=== PATIENT | female | born 1930 | race American Indian/Alaskan Native ===

== ENCOUNTER 2020-04-13 18:42 | Emergency (ER) | payer MEDICARE, OTHER ==
[2020-04-13 19:12] LABS: Basophils % (Auto) 0.8 % (0.0-1.8); Eosinophils # (Auto) 0.1 K/mm3 (0.0-0.4); Hematocrit 36.8 % (30.3-42.9); Hemoglobin 13.1 gm/dl (10.1-14.3); Lymphocytes # (Auto) 1.6 K/mm3 (1.2-5.4); Lymphocytes % (Auto) 29.4 % (13.4-35.0); Mean Corpuscular HGB Conc 36 % (30-34); Mean Corpuscular Volume 101 fl (79-97); Monocytes # (Auto) 0.4 K/mm3 (0.0-0.8); Monocytes % (Auto) 8.2 % (0.0-7.3); Platelet Count 250 K/mm3 (140-440); Red Blood Count 3.65 M/mm3 (3.65-5.03); Red Cell Distribution Width 12.8 % (13.2-15.2)
[2020-04-13 19:33] LABS: BUN/Creatinine Ratio 27; Blood Urea Nitrogen 24 mg/dL (7-17); Calcium 10.1 mg/dL (8.4-10.2); Hemolysis Index 12
[2020-04-13 19:39] LABS: INR 0.96 (0.87-1.13)
[2020-04-13 19:40] LABS: Partial Thromboplastin Time 27.7 Sec. (24.2-36.6)
--- NOTE | 2020-04-13 20:38 | Emergency Department Report ---
ED General Adult HPI - General Chief complaint: Weakness Stated complaint: WEAKNESS/LIGHTHEADED PUI?: No Time Seen by Provider: 04/13/20 19:47 Source: patient, family, RN notes reviewed, old records reviewed Mode of arrival: Wheelchair Limitations: No Limitations - History of Present Illness Initial comments: The patient was evaluated in the emergency department for symptoms described in the history of present illness. He/she was evaluated in the context of the global COVID-19 pandemic, which necessitated consideration that the patient might be at risk for infection with the virus that causes COVID-19. Institutional protocols and algorithms that pertain to the evaluation of patients at risk for COVID-19 are in a state of rapid change based on information released by regulatory bodies including the CDC and federal and state organizations. These policies and algorithms were followed during the patient's care in the emergency department. Please note that these policies, procedures and recommendations changed on a rapid basis. The patient is an 89-year-old female. Her primary care doctor is Dr. Santos. Her past medical history includes dementia, diabetes, hypertension, typically ambulates with a walker. She is accompanied by her daughter, who provides most of the history. The patient has been in her usual state of health, when she apparently woke up this morning, and reported that she felt dizzy and weak. The patient cannot describe what she means by dizzy and weak. As per her daughter, there is no complaint of fever, vomiting, diarrhea, urinary frequency, loss of taste or smell, medication change or sick contact. The patient ambulates with a walker. As per her daughter, the patient is typically able to complete most of her activities of daily living with minimal to no assistance. The patient herself denies physical pain. She cannot describe the qualitative nature of her symptoms. She cannot describe exacerbating or relieving factors, although she thinks it gets worse when she walks. She denies headache, neck pain, chest pain, abdominal pain, shortness of breath, loss of vision. There is no recent travel, surgery, or DVT, pulmonary embolism risk factors as per the patient's daughter. -: This morning (Patient woke up with symptoms) Quality: other Consistency: other Improves with: other Worsens with: other Associated Symptoms: other - Related Data Previous Rx's Medication Instructions Recorded Last Taken Type Ondansetron [Zofran TAB] 4 mg PO Q6HR PRN #20 tablet 12/30/13 Unknown Rx Ranitidine HCl [Zantac] 300 mg PO QDAY #20 tablet 12/30/13 Unknown Rx Aspirin [Aspirin BABY CHEW TAB] 81 mg PO QDAY #30 tab.chew 04/13/20 Unknown Rx Nitrofurantoin Emanuel/M-Cryst 100 mg PO Q12HR #13 capsule 04/13/20 Unknown Rx [Macrobid CAP] Potassium Chloride 20 meq PO QDAY #10 packet 04/13/20 Unknown Rx Allergies Allergy/AdvReac Type Severity Reaction Status Date / Time No Known Allergies Allergy Unverified 12/30/13 14:38 ED Review of Systems ROS: Stated complaint: WEAKNESS/LIGHTHEADED Other details as noted in HPI Constitutional: malaise, weakness. denies: fever Eyes: denies: eye discharge, vision change Respiratory: denies: cough Cardiovascular: denies: chest pain Gastrointestinal: denies: abdominal pain Genitourinary: denies: dysuria Musculoskeletal: myalgia (Chronic myalgias) Neurological: weakness, confusion (Chronic confusion). denies: headache ED Past Medical Hx - Past Medical History Previous Medical History?: Yes Hx Hypertension: Yes Hx Diabetes: Yes Hx Dementia: Yes Additional medical history: Dementia - Social History Smoking Status: Former Smoker - Medications Home Medications: Home Medications Medication Instructions Recorded Confirmed Last Taken Type Ondansetron [Zofran TAB] 4 mg PO Q6HR PRN #20 tablet 12/30/13 01/03/14 Unknown Rx Ranitidine HCl [Zantac] 300 mg PO QDAY #20 tablet 12/30/13 01/03/14 Unknown Rx Aspirin [Aspirin BABY CHEW TAB] 81 mg PO QDAY #30 tab.chew 04/13/20 Unknown Rx Nitrofurantoin Emanuel/M-Cryst 100 mg PO Q12HR #13 capsule 04/13/20 Unknown Rx [Macrobid CAP] Potassium Chloride 20 meq PO QDAY #10 packet 04/13/20 Unknown Rx ED Physical Exam - General Limitations: Physical Limitation General appearance: alert (Patient is alert to name and location. She follows commands.), in no apparent distress - Head Head exam: Present: atraumatic, normocephalic - Eye Eye exam: Present: normal appearance, EOMI. Absent: nystagmus - ENT ENT exam: Present: normal exam, normal orophraynx, mucous membranes moist, normal external ear exam - Neck Neck exam: Present: normal inspection, full ROM. Absent: tenderness, meningismus - Respiratory Respiratory exam: Present: normal lung sounds bilaterally. Absent: respiratory distress, wheezes, rales, rhonchi, stridor, decreased breath sounds - Cardiovascular Cardiovascular Exam: Present: regular rate, normal rhythm, normal heart sounds. Absent: bradycardia, tachycardia, irregular rhythm, systolic murmur, diastolic murmur, rubs, gallop - GI/Abdominal GI/Abdominal exam: Present: soft. Absent: distended, tenderness, guarding, rebound, rigid, pulsatile mass - Extremities Exam Extremities exam: Present: normal inspection, full ROM, pedal edema (1+ edema in the bilateral lower extremities), other (2+ pulses noted in the bilateral upper and lower extremities. There is no palpable cord. negative Homans sign. Muscular compartments are soft. The pelvis is stable.). Absent: calf tenderness - Back Exam Back exam: Present: normal inspection. Absent: tenderness, CVA tenderness (R), CVA tenderness (L), paraspinal tenderness, vertebral tenderness - Neurological Exam Neurological exam: Present: alert, abnormal gait (Patient walks with an unsteady gait even with a 1 person assist.), other (No facial droop. Tongue midline. Extraocular movements intact bilaterally. Facial sensation intact to light touch in V1, V2, V3 distribution bilaterally. 5 and a 5 strength in 4 extremities. Sensation intact to light touch in 4 extremities.) - Psychiatric Psychiatric exam: Present: flat affect - Skin Skin exam: Present: warm, dry, intact, normal color. Absent: rash ED Course Vital Signs 04/13/20 04/13/20 04/13/20 18:52 19:51 20:00 Temperature 98.9 F Pulse Rate 76 86 Respiratory 16 17 Rate Blood Pressure 159/85 Blood Pressure 176/84 [Right] O2 Sat by Pulse 98 99 99 Oximetry 04/13/20 04/13/20 04/13/20 20:15 20:50 21:00 Temperature Pulse Rate 84 83 Respiratory 18 20 Rate Blood Pressure 159/85 159/85 168/81 Blood Pressure [Right] O2 Sat by Pulse 99 100 Oximetry 04/13/20 04/13/20 21:16 21:30 Temperature Pulse Rate 82 87 Respiratory 16 14 Rate Blood Pressure 159/85 159/85 Blood Pressure [Right] O2 Sat by Pulse 89 96 Oximetry - Reevaluation(s) Reevaluation #1: 04/13/20 21:02 Differential diagnosis, including but not limited to: Stroke, deconditioning, p neumonia, urinary tract infection, electrolyte derangement, thyroid derangement, peripheral vertigo Assessment and plan: 89-year-old female, who is not currently tachycardic, tachypneic or hypoxic, who denies DVT, pulmonary embolism risk factors, who is low risk by Wells criteria, who woke up with a complaint of feeling weak, dizzy, with a chronically unsteady gait. Her last known well time is not explicitly known, therefore, she is not a TPA candidate. Her examination at this time is not consistent or suggestive of a large vessel occlusion. I highly suspect that the patient is deconditioned, and is likely experiencing the natural history of her multiple chronic medical issues. However, we cannot exclude subacute stroke/arrhythmia. Her EKG is abnormal but not consistent with a STEMI. Laboratory studies are reviewed and appreciated, x-ray of the chest, urinalysis, CT scan of the brain are pending. Extensive discussion had with daughter regarding goals of care. We did discuss admission to rule out stroke, risks of hospitalization, including slip and fall, delirium, sundowning, COVID-19, DVT, hospital-acquired infection are discussed with the daughter, she is currently trying to decide what she would like to do. Reevaluation #2: 04/13/20 22:30 Patient is reevaluated and her exam is unchanged. I have gone back to discuss the patient's findings with her daughter/medical decision maker. The daughter informs me that she and her siblings would prefer comfort care measures for the patient, and they do not want to have the patient hospitalized. I have explicitly explained the risks of an undiagnosed TIA/subacute stroke with the patient's daughter, including disability, , paralysis, permanent loss of quality of life. She verbalizes understanding. She understands that she may return to the emergency room right away if and when the patient has a change in her clinical status. Therefore, through shared decision making, and as per the goals of care described by the patient's family, we will discharge the patient with Macrobid, aspirin, potassium supplementation, instructions to follow-up with your primary care doctor shortly, and return with any change or worsening her condition. The patient appears quite comfortable with this plan, as is her daughter. 04/13/20 22:[address] a case management consult to determine if the patient is eligible for home physical therapy/rehabilitation ED Medical Decision Making - Lab Data Result diagrams: 04/13/20 18:55 04/13/20 18:55 Vital Signs 04/13/20 18:52 Temperature 98.9 F Pulse Rate 76 Respiratory 16 Rate Blood Pressure 176/84 [Right] O2 Sat by Pulse 98 Oximetry Lab Results 04/13/20 04/13/20 04/13/20 Range/Units 18:55 18:55 18:55 WBC 5.5 (4.5-11.0) K/mm3 RBC 3.65 (3.65-5.03) M/mm3 Hgb 13.1 (10.1-14.3) gm/dl Hct 36.8 (30.3-42.9) % MCV 101 H (79-97) fl MCH 36 H (28-32) pg MCHC 36 H (30-34) % RDW 12.8 L (13.2-15.2) % Plt Count 250 (140-440) K/mm3 Lymph % (Auto) 29.4 (13.4-35.0) % Emanuel % (Auto) 8.2 H (0.0-7.3) % Eos % (Auto) 2.0 (0.0-4.3) % Baso % (Auto) 0.8 (0.0-1.8) % Lymph # (Auto) 1.6 (1.2-5.4) K/mm3 Emanuel # (Auto) 0.4 (0.0-0.8) K/mm3 Eos # (Auto) 0.1 (0.0-0.4) K/mm3 Baso # (Auto) 0.0 (0.0-0.1) K/mm3 Seg Neutrophils % 59.6 (40.0-70.0) % Seg Neutrophils # 3.3 (1.8-7.7) K/mm3 PT 13.0 (12.2-14.9) Sec. INR 0.96 (0.87-1.13) APTT 27.7 (24.2-36.6) Sec. Thrombin Time (15.1-19.6) Sec. Sodium 138 (137-145) mmol/L Potassium 3.4 L (3.6-5.0) mmol/L Chloride 97.5 L (98-107) mmol/L Carbon Dioxide 29 (22-30) mmol/L Anion Gap 15 mmol/L BUN 24 H (7-17) mg/dL Creatinine 0.9 (0.6-1.2) mg/dL Estimated GFR > 60 ml/min BUN/Creatinine Ratio 27 % Glucose 150 H (65-100) mg/dL Lactic Acid (0.7-2.0) mmol/L Calcium 10.1 (8.4-10.2) mg/dL Magnesium (1.7-2.3) mg/dL Ammonia (25-60) umol/L Total Creatine Kinase (30-135) units/L Troponin T < 0.010 (0.00-0.029) ng/mL TSH (0.270-4.200) mlU/mL 04/13/20 04/13/20 04/13/20 Range/Units 18:55 19:27 19:27 WBC (4.5-11.0) K/mm3 RBC (3.65-5.03) M/mm3 Hgb (10.1-14.3) gm/dl Hct (30.3-42.9) % MCV (79-97) fl MCH (28-32) pg MCHC (30-34) % RDW (13.2-15.2) % Plt Count (140-440) K/mm3 Lymph % (Auto) (13.4-35.0) % Emanuel % (Auto) (0.0-7.3) % Eos % (Auto) (0.0-4.3) % Baso % (Auto) (0.0-1.8) % Lymph # (Auto) (1.2-5.4) K/mm3 Emanuel # (Auto) (0.0-0.8) K/mm3 Eos # (Auto) (0.0-0.4) K/mm3 Baso # (Auto) (0.0-0.1) K/mm3 Seg Neutrophils % (40.0-70.0) % Seg Neutrophils # (1.8-7.7) K/mm3 PT (12.2-14.9) Sec. INR (0.87-1.13) APTT (24.2-36.6) Sec. Thrombin Time 17.7 (15.1-19.6) Sec. Sodium (137-145) mmol/L Potassium (3.6-5.0) mmol/L Chloride (98-107) mmol/L Carbon Dioxide (22-30) mmol/L Anion Gap mmol/L BUN (7-17) mg/dL Creatinine (0.6-1.2) mg/dL Estimated GFR ml/min BUN/Creatinine Ratio % Glucose (65-100) mg/dL Lactic Acid 1.20 (0.7-2.0) mmol/L Calcium (8.4-10.2) mg/dL Magnesium 2.10 (1.7-2.3) mg/dL Ammonia (25-60) umol/L Total Creatine Kinase 30 (30-135) units/L Troponin T (0.00-0.029) ng/mL TSH (0.270-4.200) mlU/mL 04/13/20 04/13/20 Range/Units 19:27 19:27 WBC (4.5-11.0) K/mm3 RBC (3.65-5.03) M/mm3 Hgb (10.1-14.3) gm/dl Hct (30.3-42.9) % MCV (79-97) fl MCH (28-32) pg MCHC (30-34) % RDW (13.2-15.2) % Plt Count (140-440) K/mm3 Lymph % (Auto) (13.4-35.0) % Emanuel % (Auto) (0.0-7.3) % Eos % (Auto) (0.0-4.3) % Baso % (Auto) (0.0-1.8) % Lymph # (Auto) (1.2-5.4) K/mm3 Emanuel # (Auto) (0.0-0.8) K/mm3 Eos # (Auto) (0.0-0.4) K/mm3 Baso # (Auto) (0.0-0.1) K/mm3 Seg Neutrophils % (40.0-70.0) % Seg Neutrophils # (1.8-7.7) K/mm3 PT (12.2-14.9) Sec. INR (0.87-1.13) APTT (24.2-36.6) Sec. Thrombin Time (15.1-19.6) Sec. Sodium (137-145) mmol/L Potassium (3.6-5.0) mmol/L Chloride (98-107) mmol/L Carbon Dioxide (22-30) mmol/L Anion Gap mmol/L BUN (7-17) mg/dL Creatinine (0.6-1.2) mg/dL Estimated GFR ml/min BUN/Creatinine Ratio % Glucose (65-100) mg/dL Lactic Acid (0.7-2.0) mmol/L Calcium (8.4-10.2) mg/dL Magnesium (1.7-2.3) mg/dL Ammonia 15.0 L (25-60) umol/L Total Creatine Kinase (30-135) units/L Troponin T (0.00-0.029) ng/mL TSH 0.991 (0.270-4.200) mlU/mL - EKG Data -: EKG Interpreted by Me EKG shows normal: sinus rhythm Rate: normal - EKG Data 04/13/20 21:04 Sinus rhythm, 84 bpm, normal axis, first-degree AV block, left ventricular hypertrophy, incomplete right bundle branch block, abnormal EKG, not a STEMI, appears to be unchanged from prior EKG from December 2013 - Radiology Data Radiology results: pending Critical care attestation.: If time is entered above; I have spent that time in minutes in the direct care of this critically ill patient, excluding procedure time. ED Disposition Clinical Impression: Hypokalemia, Dizziness, Pyuria, Gait disturbance Dementia Qualifiers: Dementia type: unspecified type Dementia behavioral disturbance: without behavioral disturbance Qualified Code(s): F03.90 - Unspecified dementia without behavioral disturbance Disposition: DC-01 TO HOME OR SELFCARE Is pt being admited?: No Does the pt Need Aspirin: No Condition: Stable Additional Instructions: Please continue current home medications. Take the prescribed medications as needed and directed. Cultures were sent today, and results will be available in the next 3 to 5 days. Please have your primary care doctor contact the medical records department to obtain culture results. Please follow-up with your primary care doctor within the next 3 to 5 days. Please return to the emergency room right away with new pain, worsening, migration of pain, projectile vomiting, change in mental status, confusion, inability to tolerate liquid feeds, new, worsened or different symptoms not present on the initial emergency room evaluation. Referrals: CHOCO SANTOS JR, MD [Staff Physician] - 3-5 Days
--- NOTE | 2020-04-13 21:01 | Cat Scan Report ---
CT head/brain wo con INDICATION / CLINICAL INFORMATION: 89 years Female; neuro deficits <6hrs or sx present upon awakening. TECHNIQUE: Routine CT head without contrast. All CT scans at this location are performed using CT dos e reduction for ALARA by means of automated exposure control. COMPARISON: None. FINDINGS: BRAIN / INTRACRANIAL CONTENTS: There is extensive cerebral white matter disease most consistent with microvascular angiopathy. There is moderate cerebral atrophy with associated prominence of the ventri cular system. The motion degrades the image quality. However, there is no clear CT evidence of acute intracranial hemorrhage or significant mass effect. The microvascular angiopathy includes the ganglia capsular regions bilaterally. ORBITS: No significant abnormality of visualized orbits. SINUSES / MASTOIDS: No significant abnormality in the visualized paranasal sinuses or mastoid air mart ls. CRANIOCERVICAL JUNCTION: No significant abnormality. ADDITIONAL FINDINGS: There is a 1 cm focus of calcification along the high right parafalcine region w hich is likely incidental. There is no significant mass effect. IMPRESSION: 1. There is extensive microvascular angiopathy and moderate cerebral atrophy as described without CT evidence of acute intracranial hemorrhage. Signer Name: Zion Martin MD Signed: 04/13/2020 8:56 PM Workstation Name: [id number]
[2020-04-13] MEDS ORDERED: POTASSIUM CHLORIDE ER 20 MEQ TAB PO ONE (21:04)
[2020-04-13 21:05] LABS: Bacteria,Urine 1+ /HPF (Negative); Bilirubin,Urine NEG (Negative); Blood,Urine NEG (Negative); Color,Urine Yellow (Yellow); Mucus,Urine 2+ /HPF; Protein,Urine <15 mg/dL mg/dL (Negative)
[2020-04-13] MEDS ORDERED: NITROFURANTOIN MONOHYD/M-CRYST 100 MG CAP PO ONE (21:19)
[2020-04-13] MEDS ORDERED: ASPIRIN 81 MG TAB CHEW PO ONE (21:19)
--- NOTE | 2020-04-13 22:15 | XRay Report ---
CHEST 1 VIEW, 04/13/2020 9:04 PM CLINICAL INFORMATION/INDICATION: Weakness. Dizziness. COMPARISON: Chest radiograph, 01/03/2014 FINDINGS: SUPPORT DEVICES: None. HEART: The cardiac silhouette is normal in size. LUNGS/PLEURA: The lungs appear clear of focal airspace disease or significant pleural effusion. There is minimal linear atelectasis at the right lung base. ADDITIONAL FINDINGS: No additional acute findings. IMPRESSION: 1. No evidence of acute cardiopulmonary process. Signer Name: Marsha Page MD Signed: 04/13/2020 10:11 PM Workstation Name: [id number]
[2020-04-13 22:33] VITALS: BP 181/92
== END 2020-04-13 22:50 | disposition home or self-care (01) ==
LOC: ED 18:42
DX: E87.6 Hypokalemia (principal); R42 Dizziness and giddiness; R82.81 Pyuria; R26.9 Unspecified abnormalities of gait and mobility; F03.90 Unspecified dementia, unspecified severity, without behavioral disturbance, psychotic disturbance, mood disturbance, and anxiety; I10 Essential (primary) hypertension; E11.9 Type 2 diabetes mellitus without complications; Z87.891 Personal history of nicotine dependence; Z79.899 Other long term (current) drug therapy
CPT/HCPCS: 36415; 70450; 71045; 80048; 81001; 82140; 82550; 83735; 84443; 84484; 85025; 85610; 85670; 85730; 87040; 87086; 93005